=== PATIENT | female | born 1970 | race Two or more races ===

== ENCOUNTER 2018-12-23 12:31 | Emergency (ER) | payer OTHER ==
[~2018-12-23] VITALS: Ht 160 cm; Wt 83.9 kg
[2018-12-23 12:43] VITALS: BP 125/72
[2018-12-23] MEDS ORDERED: KETOROLAC 30 MG/ML VIAL. IM STA (12:45)
--- NOTE | 2018-12-23 12:48 | PHYS DOC ---
Adult General Chief Complaint Chief Complaint: MECHANICAL FALL HPI HPI Patient is a 48 year old female that was at work and slipped on some water around 11:15 AM and states that her left forearm and shoulder hip and pelvis area have hurt since that time. It's her pain as 10 out of 10 in severity and sharp. No medications prior to arrival. (KIEL HEART APRN) Review of Systems Review of Systems Constitutional: Denies fever or chills [] Eyes: Denies change in visual acuity, redness, or eye pain [] HENT: Denies nasal congestion or sore throat [] Respiratory: Denies cough or shortness of breath [] Cardiovascular: No additional information not addressed in HPI [] GI: Denies abdominal pain, nausea, vomiting, bloody stools or diarrhea [] : Denies dysuria or hematuria [] Musculoskeletal: Reports L hip and back pain. Reports L shoulder, and arm pain. Integument: Denies rash or skin lesions [] Neurologic: Denies headache, focal weakness or sensory changes [] Endocrine: Denies polyuria or polydipsia [] Complete systems were reviewed and found to be within normal limits, except as documented in this note. (KIEL HEART APRN) Current Medications Current Medications Current Medications Medications (Trade) Dose Ordered Sig/Vahid Start Time Stop Time Status Last Admin Dose Admin Ketorolac Tromethamine (Toradol 30mg Vial) 30 mg 1X STAT 12/23/18 12:45 12/23/18 13:15 DC 12/23/18 13:40 30 MG (MATY LUTHER MD) Allergies Allergies Allergies Coded Allergies Type Severity Reaction Last Updated Verified naproxen Allergy Unknown HIVES 12/23/18 Yes (MATY LUTHER MD) Physical Exam Physical Exam Constitutional: Well developed, well nourished, no acute distress, non-toxic appearance. [] HENT: Normocephalic, atraumatic, bilateral external ears normal, oropharynx moist, no oral exudates, nose normal. [] Eyes: PERRLA, EOMI, conjunctiva normal, no discharge. [] Neck: Normal range of motion, no tenderness, supple, no stridor. [] Cardiovascular:Heart rate regular rhythm, no murmur [] Lungs & Thorax: Bilateral breath sounds clear to auscultation [] Abdomen: Bowel sounds normal, soft, no tenderness, no masses, no pulsatile masses. [] Skin: Warm, dry, no erythema, no rash. [] Back: No tenderness, no CVA tenderness. [] Extremities: Tenderness to L shoulder, and L arm. Tenderness to L hip. Neurologic: Alert and oriented X 3, normal motor function, normal sensory function, no focal deficits noted. [] Psychologic: Affect normal, judgement normal, mood normal. [] (KIEL HEART APRN) Current Patient Data Vital Signs Vital Signs Date Time Temp Pulse Resp B/P (MAP) Pulse Ox O2 Delivery O2 Flow Rate FiO2 12/23/18 12:43 98.6 72 16 125/72 (89) 99 Room Air 98.6 (MATY LUTHER MD) EKG EKG [] (KIEL HEART APRN) Radiology/Procedures Radiology/Procedures [][facility] [address] [place] [address] IMAGING REPORT Signed PATIENT: SIM HALECOUNT: [id number] : 1970 LOCATION: ER AGE: 48 SEX: F EXAM STATUS: REG ER ORD. PHYSICIAN: KIEL HEART APRN REASON: fall PROCEDURE: HIP LEFT 1 VIEW WITH PELVIS Examination: Left hip with pelvis, 2 views of left shoulder, 2 views of left humerus, 2 views of left forearm HISTORY: History of fall COMPARISON: None available. Findings: The left femoral head is within the acetabulum. Mild degenerative changes pubic symphysis. The humerus head is within the glenoid. The visualized humerus, alignment of the radius, ulna grossly appears unremarkable IMPRESSION: No acute osseous findings. Electronically signed by: Farhan Laughlin MD (12/23/2018 1:39 PM) [facility] DICTATED and SIGNED BY: FARHAN LAUGHLIN MD DATE: 12/23/18 1336 (KIEL HEART APRN) Course & Med Decision Making Course & Med Decision Making Pertinent Labs and Imaging studies reviewed. (See chart for details) Will get imaging and give Toradol. Imaging is negative. Will d/c home. (KIEL HEART APRN) Course & Med Decision Making Staff Physician Addendum: I was working in the ER during the course of this patient's visit. I was available for consultation as needed, but I was not directly involved in the care of this patient. (MATY LUTHER MD) Dragon Disclaimer Dragon Disclaimer This electronic medical record was generated, in whole or in part, using a voice recognition dictation system. (KIEL HEART APRN) Departure Departure Impression: Primary Impression: Fall Disposition: 01 HOME, SELF-CARE Condition: STABLE Patient Instructions: Fall Prevention and Home Safety Additional Instructions: Thank you for visiting [facility]. We appreciate you trusting us with your care. If any additional problems come up don't hesitate to return to visit us. Please follow up with your primary care provider so they can plan additional care if needed and know about the problem that you had. If symptoms worsen come back to the Emergency Department. Any concerning symptoms that start such as chest pain, shortness of air, weakness or numbness on one side of the body, running high fevers or any other concerning symptoms return to the ER. Problem Qualifiers Primary Impression: Fall Encounter type: initial encounter Qualified Codes: W19.XXXA - Unspecified fall, initial encounter KIEL HEART APRN Dec 23, 2018 12:48 MATY LUTHER MD Dec 26, 2018 09:00
--- NOTE | 2018-12-23 13:42 | RAD ---
Examination: Left hip with pelvis, 2 views of left shoulder, 2 views of left humerus, 2 views of left forearm HISTORY: History of fall COMPARISON: None available. Findings: The left femoral head is within the acetabulum. Mild degenerative changes pubic symphysis. The humerus head is within the glenoid. The visualized humerus, alignment of the radius, ulna grossly appears unremarkable IMPRESSION: No acute osseous findings. Electronically signed by: Farhan Laughlin MD (12/23/2018 1:39 PM) [facility]
--- NOTE | 2018-12-23 13:42 | RAD ---
Examination: Left hip with pelvis, 2 views of left shoulder, 2 views of left humerus, 2 views of left forearm HISTORY: History of fall COMPARISON: None available. Findings: The left femoral head is within the acetabulum. Mild degenerative changes pubic symphysis. The humerus head is within the glenoid. The visualized humerus, alignment of the radius, ulna grossly appears unremarkable IMPRESSION: No acute osseous findings. Electronically signed by: Farhan Laughlin MD (12/23/2018 1:39 PM) [facility]
== END 2018-12-23 14:00 | disposition home or self-care (01) ==
LOC: ER 12:31
DX: M25.552 Pain in left hip (principal); M25.512 Pain in left shoulder; M79.602 Pain in left arm; Z88.8 Allergy status to other drugs, medicaments and biological substances; W01.0XXA Fall on same level from slipping, tripping and stumbling without subsequent striking against object, initial encounter; Y93.89 Activity, other specified; Y92.89 Other specified places as the place of occurrence of the external cause; Y99.0 Civilian activity done for income or pay
CPT/HCPCS: 73030; 73060; 73090; 73501; 96372; 99284; J1885

== ENCOUNTER 2019-01-03 20:35 | Emergency (ER) | payer BC, OTHER ==
[~2019-01-03] VITALS: Ht 160 cm; Wt 83.9 kg
[2019-01-03 20:40] VITALS: BP 169/71
--- NOTE | 2019-01-03 20:59 | PHYS DOC ---
Past Medical History Past Medical History: No Pertinent History (RUBEN ROBERTS APRN) Past Surgical History: Appendectomy, Cholecystectomy, , Other Additional Past Surgical Histo: RIGHT SHOULDER (RUBEN ROBERTS APRN) Alcohol Use: None Drug Use: None (RUBEN ROBERTS APRN) Attending Signature I have participated in the care of this patient and I have reviewed and agree with all pertinent clinical information above including history, exam, and recommendations. (NEERAJ CORDERO MD) Adult General Chief Complaint Chief Complaint: KNEE INJURY HPI HPI Patient is a 48 year old female with no significant medical history who presents to the ED to be evaluated today status post falling. Patient [facility] and [facility] a [facility] of [facility] and fell. Patient denies any loss of consciousness, denies hitting her head on the ground denies being on any blood thinners. She is complaining of 8 out of 10 right shoulder pain, right wrist pain, right knee pain, right calf pain and right ankle pain. She states the pain is worse on weight-bearing to the right lower extremity. Denies anything specifically relieving the pain. (RUBEN ROBERTS APRN) Review of Systems Review of Systems Constitutional: Denies fever or chills [] Eyes: Denies change in visual acuity, redness, or eye pain [] HENT: Denies nasal congestion or sore throat [] Respiratory: Denies cough or shortness of breath [] Cardiovascular: No additional information not addressed in HPI [] GI: Denies abdominal pain, nausea, vomiting, bloody stools or diarrhea [] : Denies dysuria or hematuria [] Musculoskeletal: Reports right shoulder pain, right hand pain, right knee pain, right calf pain, right ankle pain. Denies back pain Integument: Denies rash or skin lesions [] Neurologic: Denies headache, focal weakness or sensory changes [] Endocrine: Denies polyuria or polydipsia [] All other systems were reviewed and found to be within normal limits, except as documented in this note. (RUBEN ROBERTS APRN) Allergies Allergies Allergies Coded Allergies Type Severity Reaction Last Updated Verified naproxen Allergy Unknown HIVES 12/23/18 Yes (NEERAJ CORDERO MD) Physical Exam Physical Exam Constitutional: Well developed, well nourished, no acute distress, non-toxic kathie earance. [] HENT: Normocephalic, atraumatic, bilateral external ears normal, oropharynx moist, no oral exudates, nose normal. [] Eyes: PERRLA, EOMI, conjunctiva normal, no discharge. [] Neck: Normal range of motion, no tenderness, supple, no stridor. [] Cardiovascular:Heart rate regular rhythm, no murmur [] Lungs & Thorax: Bilateral breath sounds clear to auscultation [] Abdomen: Bowel sounds normal, soft, no tenderness, no masses, no pulsatile masses. [] Skin: Warm, dry, no erythema, no rash. [] Back: No tenderness, no CVA tenderness. [] Extremities: No tenderness, no cyanosis, no clubbing, ROM intact, no edema. [] Neurologic: Alert and oriented X 3, normal motor function, normal sensory function, no focal deficits noted. [] Psychologic: Affect normal, judgement normal, mood normal. [] (RUBEN ROBERTS APRN) Current Patient Data Vital Signs Vital Signs Date Time Temp Pulse Resp B/P (MAP) Pulse Ox O2 Delivery O2 Flow Rate FiO2 01/03/19 20:40 98.4 85 17 169/71 (103) 98 Room Air 98.4 (NEERAJ CORDERO MD) EKG EKG [] (RUBEN ROBERTS APRN) Radiology/Procedures Radiology/Procedures [] (RUBEN ROBERTS APRN) Course & Med Decision Making Course & Med Decision Making Pertinent Labs and Imaging studies reviewed. (See chart for details) This is a 48-year-old female patient who presents to the ED today complaining of pain status post falling at [facility]. She is complaining of right shoulder pain, right wrist pain, right knee pain, right flank pain, right ankle pain. Off note patient was seen in the ED 10 days ago status post falling at work and had multiple x-rays. Right wrist and right ankle x-rays interpreted by Dr. cordero and negative for any acute findings. Patient was discharged to home. Ice elevation encouraged. OTC pain relievers. Follow-up with orthopedic doctor/PCP in 1-2 weeks. (RUBEN ROBERTS APRN) Dragon Disclaimer Dragon Disclaimer This electronic medical record was generated, in whole or in part, using a voice recognition dictation system. (RUBEN ROBERTS APRN) Departure Departure Impression: Primary Impression: Fall Additional Impressions: Right ankle sprain Right wrist sprain Disposition: HOME, SELF-CARE Condition: STABLE Referrals: UNKNOWN PCP NAME (PCP) PUNEET RUBI MD follow up in one week Patient Instructions: Fall Prevention and Home Safety, Joint Sprain Additional Instructions: You were evaluated in the emergency room after falling. Your x-rays were negative for any acute findings. Please follow-up with your own doctor the provided doctor in 1-2 weeks. Try to ice and elevate the affected areas. Problem Qualifiers Primary Impression: Fall Encounter type: initial encounter Qualified Codes: W19.XXXA - Unspecified fall, initial encounter Additional Impressions: Right ankle sprain Encounter type: initial encounter Involved ligament of ankle: unspecified ligament Qualified Codes: S93.401A - Sprain of unspecified ligament of right ankle, initial encounter Right wrist sprain Encounter type: initial encounter Qualified Codes: S63.501A - Unspecified sprain of right wrist, initial encounter RUBEN ROBERTS APRN Jan 03, 2019 20:59 NEERAJ CORDERO MD Jan 04, 2019 00:39
--- NOTE | 2019-01-03 21:34 | RAD ---
Three-view right ankle dated 01/03/2019. No comparison available. Clinical data indication: Pain after fall. FINDINGS: 3 views right ankle show normal bony alignment. No displaced fracture. No acute osseous or articular abnormality. Talar dome is intact. Prominent calcaneal spur. IMPRESSION: No acute bony abnormality. Electronically signed by: Aaron Vizcarra MD (01/03/2019 9:30 PM) [facility]
--- NOTE | 2019-01-03 21:36 | RAD ---
3 views right wrist dated 01/03/2019. No comparison available. Clinical data indication: Pain after fall. FINDINGS: 3 views right wrist show normal bony alignment. No displaced fracture. No acute osseous or articular abnormality. Mild soft tissue swelling. IMPRESSION: Soft tissue swelling with no apparent underlying acute bony abnormality. Electronically signed by: Aaron Vizcarra MD (01/03/2019 9:33 PM) [facility]
== END 2019-01-03 21:30 | disposition home or self-care (01) ==
LOC: ER 20:35
DX: S93.491A Sprain of other ligament of right ankle, initial encounter (principal); S63.591A Other specified sprain of right wrist, initial encounter; M25.511 Pain in right shoulder; M79.661 Pain in right lower leg; M79.641 Pain in right hand; Z90.89 Acquired absence of other organs; Z90.49 Acquired absence of other specified parts of digestive tract; Z98.890 Other specified postprocedural states; Z88.8 Allergy status to other drugs, medicaments and biological substances; W18.31XA Fall on same level due to stepping on an object, initial encounter; Y93.89 Activity, other specified; Y92.512 Supermarket, store or market as the place of occurrence of the external cause; Y99.8 Other external cause status
CPT/HCPCS: 73110; 73610; 99284

== ENCOUNTER 2019-06-24 20:08 | Emergency (ER) | payer BC ==
[~2019-06-24] VITALS: Ht 172.7 cm; Wt 82.0 kg
--- NOTE | 2019-06-24 20:28 | PHYS DOC ---
Past Medical History Past Medical History: No Pertinent History Past Surgical History: Appendectomy, Cholecystectomy, , Other Additional Past Surgical Histo: RIGHT SHOULDER Smoking Status: Never Smoker Alcohol Use: None Drug Use: None Adult General Chief Complaint Chief Complaint: DIZZY/LIGHT HEADED [facility] HPI Patient is a 49 year old female who presents secondary to complaint of dizziness and sore throat that started approximately 40 minutes prior to arri daquan. The patient states that she feels a discomfort when she swallows and it is slightly more difficult than normal but she has no pain. No fever or chills reported. She states that she feels slightly lightheaded. No recent sickness. No medications taken prior to arrival. No new medications or food exposures tonight. Review of Systems Review of Systems All other ROS is negative unless otherwise stated in HPI Current Medications Current Medications Current Medications Medications (Trade) Dose Ordered Sig/Vahid Start Time Stop Time Status Last Admin Dose Admin Sodium Chloride 1,000 ml @ 1,000 mls/hr 1X ONCE 06/24/19 20:30 06/24/19 21:29 06/24/19 20:30 1,000 MLS/HR Allergies Allergies Allergies Coded Allergies Type Severity Reaction Last Updated Verified naproxen Allergy Unknown HIVES 12/23/18 Yes Physical Exam Physical Exam See above Constitutional: Well developed, well nourished, no acute distress, non-toxic appearance. [] HENT: Normocephalic, atraumatic, bilateral external ears normal, oropharynx moist, there is moderate posterior pharynx erythema with mild swelling and no exudates. Eyes: PERRLA, EOMI, conjunctiva normal, no discharge. [] Neck: Normal range of motion, no tenderness, supple, no stridor. [] Cardiovascular:Heart rate regular rhythm, no murmur [] Lungs & Thorax: Bilateral breath sounds clear to auscultation [] Abdomen: Bowel sounds normal, soft, no tenderness, no masses, no pulsatile masses. [] Skin: Warm, dry, no erythema, no rash. [] Back: No tenderness, no CVA tenderness. [] Extremities: No tenderness, no cyanosis, no clubbing, ROM intact, no edema. [] Neurologic: Alert and oriented X 3, normal motor function, normal sensory function, no focal deficits noted. [] Psychologic: Affect normal, judgement normal, mood normal. [] Current Patient Data Lab Values Laboratory Tests Test 06/24/19 20:32 06/24/19 20:37 Influenza Type A Antigen Negative (NEGATIVE) Influenza Type B Antigen Negative (NEGATIVE) White Blood Count 10.1 x10^3/uL (4.0-11.0) Red Blood Count 3.88 x10^6/uL (3.50-5.40) Hemoglobin 12.5 g/dL (12.0-15.5) Hematocrit 36.5 % (36.0-47.0) Mean Corpuscular Volume 94 fL (79-100) Mean Corpuscular Hemoglobin 32 pg (25-35) Mean Corpuscular Hemoglobin Concent 34 g/dL (31-37) Red Cell Distribution Width 13.9 % (11.5-14.5) Platelet Count 346 x10^3/uL (140-400) Neutrophils (%) (Auto) 76 % (31-73) H Lymphocytes (%) (Auto) 17 % (24-48) L Monocytes (%) (Auto) 6 % (0-9) Eosinophils (%) (Auto) 1 % (0-3) Basophils (%) (Auto) 1 % (0-3) Neutrophils # (Auto) 7.6 x10^3/uL (1.8-7.7) Lymphocytes # (Auto) 1.7 x10^3/uL (1.0-4.8) Monocytes # (Auto) 0.6 x10^3/uL (0.0-1.1) Eosinophils # (Auto) 0.0 x10^3/uL (0.0-0.7) Basophils # (Auto) 0.1 x10^3/uL (0.0-0.2) Sodium Level 137 mmol/L (136-145) Potassium Level 3.9 mmol/L (3.5-5.1) Chloride Level 103 mmol/L (98-107) Carbon Dioxide Level 26 mmol/L (21-32) Anion Gap 8 (6-14) Blood Urea Nitrogen 15 mg/dL (7-20) Creatinine 0.9 mg/dL (0.6-1.0) Estimated GFR (Cockcroft-Gault) 66.3 Glucose Level 161 mg/dL (70-99) H Calcium Level 8.5 mg/dL (8.5-10.1) Troponin I Quantitative < 0.017 ng/mL (0.000-0.055) Laboratory Tests 06/24/19 20:37 Laboratory Tests 06/24/19 20:37 EKG EKG Patient's EKG shows a normal sinus rhythm with a heart rate of [address] changes. Radiology/Procedures Radiology/Procedures [] Course & Med Decision Making Course & Med Decision Making Pertinent Labs and Imaging studies reviewed. (See chart for details) 2026: This patient seen for dizziness and sore throat. Examination is concerning for possible pharyngitis. Differential diagnosis considered cooperatives, viral pharyngitis, generalized malaise, viral syndrome. Given IV fluids, check labs. EKG is unremarkable. We'll also check for strep. 2120: Patient's labs are unremarkable. We'll start her on prednisone to help with viral pharyngitis. Dragon Disclaimer Dragon Disclaimer This electronic medical record was generated, in whole or in part, using a voice recognition dictation system. Departure Departure Impression: Primary Impression: Viral pharyngitis Additional Impression: Dizziness Disposition: 01 HOME, SELF-CARE Condition: IMPROVED Referrals: UNKNOWN PCP NAME (PCP) Patient Instructions: Viral Pharyngitis Scripts Prednisone (PREDNISONE) 20 Mg Tablet 2 TAB PO DAILY, #10 TAB Prov: MARGIE SHIN DO 06/24/19 Problem Qualifiers MARGIE SHIN DO Jun 24, 2019 20:27
[2019-06-24] MEDS ORDERED: IV NORMAL SALINE 1000ML BAG 1,000 ML IV ONE (20:30)
[2019-06-24 20:47] LABS: BASO # 0.1 x10^3/uL (0.0-0.2); BASO % 1 % (0-3); EOS % 1 % (0-3); HEMATOCRIT 36.5 % (36.0-47.0); HEMOGLOBIN 12.5 g/dL (12.0-15.5); LYMPH # 1.7 x10^3/uL (1.0-4.8); LYMPH % 17 % (24-48); MEAN CORPUSCULAR HEMOGLOBIN 32 pg (25-35); MEAN CORPUSCULAR HGB CONC 34 g/dL (31-37); MEAN CORPUSCULAR VOLUME 94 fL (79-100); MONO # 0.6 x10^3/uL (0.0-1.1); MONO % 6 % (0-9); NEUT # 7.6 x10^3/uL (1.8-7.7); NEUT % 76 % (31-73); PLATELET COUNT 346 x10^3/uL (140-400); RED BLOOD COUNT 3.88 x10^6/uL (3.50-5.40); RED CELL DISTRIBUTION WIDTH 13.9 % (11.5-14.5); WHITE BLOOD COUNT 10.1 x10^3/uL (4.0-11.0)
[2019-06-24 20:58] LABS: CALCIUM 8.5 mg/dL (8.5-10.1); CREATININE 0.9 mg/dL (0.6-1.0); GFR 66.3; POTASSIUM 3.9 mmol/L (3.5-5.1)
[2019-06-24 21:14] LABS: INFLUENZA A PATIENT NEGATIVE (NEGATIVE); INFLUENZA B PATIENT NEGATIVE (NEGATIVE)
[2019-06-24] MEDS ORDERED: PRED20TA PO (21:22)
[2019-06-24] MEDS ORDERED: predniSONE 20 MG TABLET PO ONE (21:30)
[2019-06-24] MEDS ORDERED: methylPREDNISolone SOD SUCC PF 125 MG/2 ML VIAL. IV ONE (21:30)
[2019-06-24 21:52] VITALS: BP 114/62
--- NOTE | 2019-06-25 02:59 | EKG ---
[facility] [address] [place] [address] Test Date: 2019-06-24 Test Time: 20:19:27 Pat Name: DAYAAN HALE Department: Room: Gender: F [employer] Services Manager: : 1970 Requested By: MARGIE SHIN Order Number: [id number] Reading MD: Measurements Intervals [place] Rate: 84 P: 126 NM: 120 QRS: -14 QRSD: 76 T: -4 QT: 434 QTc: 516 Interpretive Statements SINUS RHYTHM LEFT ATRIAL ABNORMALITY LEFTWARD AXIS T ABNORMALITY IN ANTERIOR LEADS PROLONGED QT NON SPECIFIC ST DEPRESSION ABNORMAL ECG No previous ECG available for comparison
== END 2019-06-24 22:03 | disposition home or self-care (01) ==
LOC: ER 20:08
DX: J02.8 Acute pharyngitis due to other specified organisms (principal); R42 Dizziness and giddiness; Z90.89 Acquired absence of other organs; Z90.49 Acquired absence of other specified parts of digestive tract; Z88.6 Allergy status to analgesic agent
CPT/HCPCS: 36415; 80048; 84484; 85025; 87804; 93005; 96361; 96374; 99284; J2930; J7030; 87070; 87880

== ENCOUNTER 2020-06-23 19:52 | Emergency (ER) | payer BC ==
[~2020-06-23] VITALS: Ht 167.6 cm; Wt 82.0 kg
[~2020-06-23 19:52] MED LIST: PRED20TA PO
--- NOTE | 2020-06-23 21:26 | PHYS DOC ---
Past Medical History Past Medical History: No Pertinent History Past Surgical History: Appendectomy, Cholecystectomy, , Other Additional Past Surgical Histo: RIGHT SHOULDER Smoking Status: Never Smoker Alcohol Use: None Drug Use: None General Adult EDM: Chief Complaint: LOWER EXT PAIN HPI: HPI: 50-year-old female who presents for evaluation of 2 days of atraumatic proximal left lower extremity, left groin and pelvic pain. No nausea, vomiting, or diarrhea. No back or flank pain. She states that the location of her pain is somewhat vague, extending from the proximal left lower extremity to the left lower quadrant region. Pain is worse with ambulation and direct palpation. Review of Systems: Review of Systems: Gen: No fever, chills. Eyes: No blurred vision, diplopia. ENT: No nasal congestion, sore throat. CV: No CP, palpitations. Resp. No SOB, cough. GI: No N/V. Reports left-sided pelvic and groin pain. : No dysuria, hematuria. Neuro: No ZHANG, dizziness, weakness. MSK: No back pain. Reports arthralgia. Skin: No acute rash or lesion. Remainder of systems reviewed and negative unless otherwise specified. Heart Score: Risk Factors: Risk Factors: DM, Current or recent (<one month) smoker, HTN, HLP, family histo ry of CAD, obesity. Risk Scores: Score 0 - 3: 2.5% MACE over next 6 weeks - Discharge Home Score 4 - 6: 20.3% MACE over next 6 weeks - Admit for Clinical Observation Score 7 - 10: 72.7% MACE over next 6 weeks - Early Invasive Strategies Allergies: Allergies: Allergies Coded Allergies Type Severity Reaction Last Updated Verified naproxen Allergy Unknown HIVES 12/23/18 Yes Physical Exam: PE: Gen: NAD. Well nourished. Head: NC/AT. Eyes: No scleral icterus. No conjunctival injection. ENT: MMM. Posterior OP clear. Neck: Supple. CV: RRR. No M/R/G. Peripheral pulses intact. Resp: CTAB. Abd: Soft. Nondistended. Nonfocal left pelvic tenderness. No overlying skin changes. No flank percussion tenderness. Back: No midline spinal tenderness or step-off. MSK: No peripheral cyanosis. No edema. Questionably positive left lower extremity straight leg raise. Neuro: A&Ox3. Strength & sensation grossly intact throughout. Skin. Warm. Dry. Psych: Appropriate mood & affect. Current Patient Data: Labs: Laboratory Tests Test 06/23/20 21:43 06/23/20 21:48 Urine Collection Type Unknown Urine Color Yellow Urine Clarity Clear Urine pH 5.5 (<5.0-8.0) Urine Specific [place] >=1.030 (1.000-1.030) Urine Protein Negative mg/dL (NEG-TRACE) Urine Glucose (UA) Negative mg/dL (NEG) Urine Ketones (Stick) Negative mg/dL (NEG) Urine Blood Moderate (NEG) Urine Nitrite Negative (NEG) Urine Bilirubin Negative (NEG) Urine Urobilinogen Dipstick 0.2 mg/dL (0.2 mg/dL) Urine Leukocyte Esterase Negative (NEG) Urine RBC 1-2 /HPF (0-2) Urine WBC 1-4 /HPF (0-4) Urine Squamous Epithelial Cells Many /LPF Urine Bacteria Few /HPF (0-FEW) Urine Mucus Marked /LPF White Blood Count 7.8 x10^3/uL (4.0-11.0) Red Blood Count 3.87 x10^6/uL (3.50-5.40) Hemoglobin 12.4 g/dL (12.0-15.5) Hematocrit 36.8 % (36.0-47.0) Mean Corpuscular Volume 95 fL (79-100) Mean Corpuscular Hemoglobin 32 pg (25-35) Mean Corpuscular Hemoglobin Concent 34 g/dL (31-37) Red Cell Distribution Width 14.6 % (11.5-14.5) Platelet Count 282 x10^3/uL (140-400) Neutrophils (%) (Auto) 59 % (31-73) Lymphocytes (%) (Auto) 30 % (24-48) Monocytes (%) (Auto) 8 % (0-9) Eosinophils (%) (Auto) 3 % (0-3) Basophils (%) (Auto) 1 % (0-3) Neutrophils # (Auto) 4.6 x10^3/uL (1.8-7.7) Lymphocytes # (Auto) 2.3 x10^3/uL (1.0-4.8) Monocytes # (Auto) 0.6 x10^3/uL (0.0-1.1) Eosinophils # (Auto) 0.2 x10^3/uL (0.0-0.7) Basophils # (Auto) 0.1 x10^3/uL (0.0-0.2) Sodium Level 140 mmol/L (136-145) Chloride Level 105 mmol/L (98-107) Carbon Dioxide Level 29 mmol/L (21-32) Anion Gap 6 (6-14) Blood Urea Nitrogen 20 mg/dL (7-20) Estimated GFR (Cockcroft-Gault) 66.0 BUN/Creatinine Ratio 22 (6-20) Glucose Level 88 mg/dL (70-99) Calcium Level 8.7 mg/dL (8.5-10.1) Total Bilirubin 0.2 mg/dL (0.2-1.0) Aspartate Amino Transf (AST/SGOT) 19 U/L (15-37) Alkaline Phosphatase 69 U/L (46-116) Total Protein 7.1 g/dL (6.4-8.2) Albumin 3.4 g/dL (3.4-5.0) Albumin/Globulin Ratio 0.9 (1.0-1.7) EKG: EKG: [] Radiology/Procedures: Radiology/Procedures: PROCEDURE: CT ABD PELV W/ IV CONTRST ONLY Exam: CT of abdomen and pelvis with contrast. CT lumbar spine INDICATION: Left-sided pelvic pain TECHNIQUE: Sequential axial images through the abdomen and pelvis obtained following the administration of 75 mL of Omni 300 IV contrast. Sagittal and coronal reformatted images were reconstructed from the axial data and reviewed. Cone-down reconstructed images of the lumbar spine were also reviewed. Comparisons: None FINDINGS: Heart size is normal. No pericardial effusion. Strandy opacities at dependent portion lungs likely representing atelectasis. No pleural effusion. Liver, spleen, pancreas, and adrenals are unremarkable. Gallbladder surgically absent. No perinephric inflammation or hydronephrosis. No renal or ureteral calculi are identified. Bladder is decompressed not well evaluated. Uterus is nonenlarged. There is a 3 cm cyst at the left adnexa. Large and small bowel are unremarkable. Appendix is is not identified. No free intra-abdominal air or fluid. No obstruction. Abdominal aorta has a normal course and caliber. Abdominal vasculature is patent. No enlarged intra-abdominal lymph nodes are identified. No suspicious osseous lesions or acute fractures. Lumbar spine: Vertebral body heights and alignment are well-maintained. Fracture to the lumbar spine is not identified. No significant spondylotic change lumbar spine. IMPRESSION: 1. Cystic lesion at the left adnexa which measures 3.0 cm, favored represent cyst within the left ovary. This is incompletely evaluated on CT. 2. Negative CT lumbar spine for acute traumatic injury. Exposure: One or more of the following in the visualized dose reduction te chniques were utilized for this examination: 1. Automated exposure control 2. Adjustment of the MA and/or KV according to patient size 3. Use of iterative of reconstructive technique Electronically signed by: Amanda Ornelas MD (06/23/2020 10:55 PM) [facility] Course & Med Decision Making: Course & Med Decision Making Pertinent Labs and Imaging studies reviewed. (See chart for details) 50-year-old female who presents for evaluation of 2 days of left pelvic pain that radiates to the inguinal fold and proximal thigh. HDS. Nonfocal LLQ TTP without R/G/R. No midline spinal or flank TTP. Labs unrevealing. CTAP with likely left ovarian cyst. Pain controlled with toradol (declined morphine). Do not suspect acute torsion. Will DC home with outpatient [facility] F/U. Rx tramdol. Return precautions given. Aron Disclaimer: Aron Disclaimer: This electronic medical record was generated, in whole or in part, using a voice recognition dictation system. Departure Departure Impression: Primary Impression: Left ovarian cyst Disposition: 01 DC HOME SELF CARE/HOMELESS Condition: STABLE Referrals: FRANSISCO GUERRERO MD Patient Instructions: Ovarian Cyst, Acam-hs-Hrgi Additional Instructions: Your CT showed a likely left ovarian cyst measuring 3 cm. Follow up with the casing in line setter. Return to the ED if you develop new or worsening symptoms. Scripts Tramadol Hcl (TRAMADOL HCL) 50 Mg Tablet 50 MG PO Q8HRS PRN for PAIN, #15 TAB Prov: CARMEL SCOTT DO 06/23/20 CARMEL SCOTT DO Jun 23, 2020 21:26
[2020-06-23] MEDS ORDERED: MORPHINE SULFATE 4 MG/ML VIAL. IV ONE (21:30)
[2020-06-23 22:07] LABS: BASO # 0.1 x10^3/uL (0.0-0.2); BASO % 1 % (0-3); EOS # 0.2 x10^3/uL (0.0-0.7); EOS % 3 % (0-3); HEMATOCRIT 36.8 % (36.0-47.0); HEMOGLOBIN 12.4 g/dL (12.0-15.5); LYMPH # 2.3 x10^3/uL (1.0-4.8); LYMPH % 30 % (24-48); MEAN CORPUSCULAR HEMOGLOBIN 32 pg (25-35); MEAN CORPUSCULAR HGB CONC 34 g/dL (31-37); MEAN CORPUSCULAR VOLUME 95 fL (79-100); MONO # 0.6 x10^3/uL (0.0-1.1); MONO % 8 % (0-9); NEUT # 4.6 x10^3/uL (1.8-7.7); NEUT % 59 % (31-73); PLATELET COUNT 282 x10^3/uL (140-400); RED BLOOD COUNT 3.87 x10^6/uL (3.50-5.40); RED CELL DISTRIBUTION WIDTH 14.6 % (11.5-14.5); WHITE BLOOD COUNT 7.8 x10^3/uL (4.0-11.0)
[2020-06-23 22:09] LABS: BILIRUBIN,URINE NEGATIVE (NEG); CLARITY,URINE CLEAR; COLOR,URINE YELLOW; NITRITE,URINE NEGATIVE (NEG); PH,URINE 5.5 (<5.0-8.0); PROTEIN,URINE NEGATIVE (NEG-TRACE); UROBILINOGEN,URINE 0.2 mg/dL (0.2 mg/dL)
[2020-06-23 22:16] LABS: CALCIUM 8.7 mg/dL (8.5-10.1); CREATININE 0.9 mg/dL (0.6-1.0); POTASSIUM 3.8 mmol/L (3.5-5.1)
[2020-06-23 22:17] LABS: BACTERIA,URINE FEW /HPF (0-FEW)
[2020-06-23 22:22] LABS: ALBUMIN 3.4 g/dL (3.4-5.0); ALBUMIN/GLOBULIN RATIO 0.9 (1.0-1.7); MAGNESIUM 2.1 mg/dL (1.8-2.4); TOTAL BILIRUBIN 0.2 mg/dL (0.2-1.0); TOTAL PROTEIN 7.1 g/dL (6.4-8.2)
[2020-06-23] MEDS ORDERED: IOHEXOL 300 MG/ML 100ML VIAL. IV ONE (22:30)
[2020-06-23] MEDS ORDERED: KETOROLAC 15 MG/ML VIAL. IVP ONE (22:30)
[2020-06-23] MEDS ORDERED: CONTRAST GIVEN. MC PRN (22:30)
--- NOTE | 2020-06-23 22:57 | RAD ---
Exam: CT of abdomen and pelvis with contrast. CT lumbar spine INDICATION: Left-sided pelvic pain TECHNIQUE: Sequential axial images through the abdomen and pelvis obtained following the administrati on of 75 mL of Omni 300 IV contrast. Sagittal and coronal reformatted images were reconstructed from the axial data and reviewed. Cone-down reconstructed images of the lumbar spine were also reviewed. Comparisons: None FINDINGS: Heart size is normal. No pericardial effusion. Strandy opacities at dependent portion lungs likely re presenting atelectasis. No pleural effusion. Liver, spleen, pancreas, and adrenals are unremarkable. Gallbladder surgically absent. No perinephric inflammation or hydronephrosis. No renal or ureteral calculi are identified. Bladder is decompressed not well evaluated. Uterus is nonenlarged. There is a 3 cm cyst at the left a dnexa. Large and small bowel are unremarkable. Appendix is is not identified. No free intra-abdominal air or fluid. No obstruction. Abdominal aorta has a normal course and caliber. Abdominal vasculature is patent. No enlarged intra-abdominal lymph nodes are identified. No suspicious osseous lesions or acute fractures. Lumbar spine: Vertebral body heights and alignment are well-maintained. Fracture to the lumbar spine is not identified. No significant spondylotic change lumbar spine. IMPRESSION: 1. Cystic lesion at the left adnexa which measures 3.0 cm, favored represent cyst within the left ov ana m. This is incompletely evaluated on CT. 2. Negative CT lumbar spine for acute traumatic injury. Exposure: One or more of the following in the visualized dose reduction techniques were utilized for this examination: 1. Automated exposure control 2. Adjustment of the MA and/or KV according to patient size 3. Use of iterative of reconstructive technique Electronically signed by: Amanda Ornelas MD (06/23/2020 10:55 PM) [facility]
[2020-06-23] MEDS ORDERED: TRAM50TA PO (23:06)
[2020-06-23 23:23] VITALS: BP 122/55
== END 2020-06-23 23:30 | disposition home or self-care (01) ==
LOC: ER 19:52
DX: N83.202 Unspecified ovarian cyst, left side (principal); Z90.89 Acquired absence of other organs; Z90.49 Acquired absence of other specified parts of digestive tract; Z88.5 Allergy status to narcotic agent
CPT/HCPCS: 36415; 74177; 80053; 81001; 83735; 85025; 96374; 99285; J1885; Q9967

== ENCOUNTER 2021-05-14 10:11 | Emergency (ER) | payer BC ==
[~2021-05-14] VITALS: Ht 167.6 cm; Wt 79.8 kg
[~2021-05-14 10:11] MED LIST changes: +TRAM50TA PO
[2021-05-14] MEDS ORDERED: ONDANSETRON PF 4 MG/2 ML VIAL. IVP ONE (10:30)
[2021-05-14] MEDS ORDERED: KETOROLAC 30 MG/ML VIAL. IVP ONE (10:30)
[2021-05-14] MEDS ORDERED: IV NORMAL SALINE 1000ML BAG 1,000 ML IV ONE (10:30)
[2021-05-14 11:06] LABS: BASO % 1 % (0-3); EOS # 0.2 x10^3/uL (0.0-0.7); EOS % 3 % (0-3); HEMATOCRIT 40.8 % (36.0-47.0); HEMOGLOBIN 13.7 g/dL (12.0-15.5); LYMPH # 1.2 x10^3/uL (1.0-4.8); LYMPH % 18 % (24-48); MEAN CORPUSCULAR HEMOGLOBIN 31 pg (25-35); MEAN CORPUSCULAR HGB CONC 34 g/dL (31-37); MEAN CORPUSCULAR VOLUME 92 fL (79-100); MONO # 0.3 x10^3/uL (0.0-1.1); MONO % 5 % (0-9); NEUT % 75 % (31-73); PLATELET COUNT 306 x10^3/uL (140-400); RED BLOOD COUNT 4.44 x10^6/uL (3.50-5.40); RED CELL DISTRIBUTION WIDTH 14.3 % (11.5-14.5); WHITE BLOOD COUNT 6.8 x10^3/uL (4.0-11.0)
[2021-05-14] MEDS ORDERED: IOHEXOL 300 MG/ML 100ML VIAL. IV ONE (11:15)
--- NOTE | 2021-05-14 11:16 | RAD ---
XR CHEST 1V INDICATION: Dizziness . COMPARISON STUDY: None. FINDINGS: Lungs: Normal lung volume. No pulmonary mass or consolidation. The tracheobronchial tree and hilar st ructures are normal. Pleura: No pleural effusion or pneumothorax. Heart and Mediastinum: The cardiomediastinal silhouette is normal. The great vessels of the thorax ar e normal. Bones and Soft Tissues: The bones and soft tissues are within normal limits. IMPRESSION: No acute cardiopulmonary process. Electronically signed by: Dale Case MD (05/14/2021 11:13 AM) [id number]
[2021-05-14 11:25] LABS: CALCIUM 9.2 mg/dL (8.5-10.1); CREATININE 0.8 mg/dL (0.6-1.0); GFR 75.3; POTASSIUM 4.8 mmol/L (3.5-5.1)
[2021-05-14 11:30] LABS: ALBUMIN 3.7 g/dL (3.4-5.0); ALBUMIN/GLOBULIN RATIO 0.9 (1.0-1.7); TOTAL BILIRUBIN 0.5 mg/dL (0.2-1.0); TOTAL PROTEIN 7.8 g/dL (6.4-8.2)
[2021-05-14] MEDS ORDERED: CONTRAST GIVEN. MC PRN (11:30)
[2021-05-14 11:33] LABS: INFLUENZA A PATIENT NEGATIVE (NEGATIVE); INFLUENZA B PATIENT NEGATIVE (NEGATIVE)
--- NOTE | 2021-05-14 12:11 | RAD ---
EXAM: CTA HEAD AND NECK W/WO CONTRAST, CT HEAD/BRAIN WO DATE: 05/14/2021 11:42 AM INDICATION: Dizziness, light headedness TECHNIQUE: 5 mm axial tomographic images were obtained through the head before contrast. CTA angiogra m of the head and neck was obtained after IV bolus administration of 75 cc of Omnipaque 300. The imag es were sent to workstation and multiplanar reconstructions were obtained. Multiplanar reconstructio n images to include MIP and 3-D reconstruction images are submitted. One or more of the following dose reduction techniques were utilized: Automated exposure control (AEC ), Adjustment of mA and/or kV according to patient size, Use of iterative reconstruction technique carbajal ch as ASiR, CT scan done according to ALARA and image gently/image wisely COMPARISON: None. FINDINGS: Noncontrast CT: The brain parenchyma is normal in attenuation. No intra- or extra-axial mass or fluid collection. No hyperdense intracranial hemorrhage. The ventricles are normal in size and configuration without midli ne shift. There is normal govea-white matter differentiation. The subarachnoid cisterns are patent. The visualized paranasal sinuses are well aerated. The mastoid air cells are clear. The visualized po rtions of the orbits are normal. No aggressive osseous lesion or fracture. CTA Head: The visualized distal internal carotid arteries, anterior and middle cerebral arteries are patent and normal caliber. The distal vertebral arteries, basilar artery, and posterior cerebral arteries are p atent and normal caliber. No aneurysm or arteriovenous malformation is seen. CTA Neck: Right carotid: The right common carotid artery is patent and normal caliber. The carotid bifurcation is normal. No stenosis of the right internal carotid artery per NASCET criteria. The right external c arotid artery is patent. Left carotid: The left common carotid artery is patent and normal caliber. The carotid bifurcation is normal. No stenosis of the left internal carotid artery per NASCET criteria. The left external carot id artery is patent. Right vertebral: The right vertebral artery is patent and normal caliber. Left vertebral: The left vertebral artery is patent and normal caliber. The visualized portions of the aortic arch are normal. The origins of the brachiocephalic and subclav nilson arteries are normal. Scattered conspicuous cervical lymph nodes. Enlarged palatine tonsils. The thyroid gland is normal. T he parotid and submandibular glands are normal. The visualized aerodigestive tract is unremarkable. Mild multilevel degenerative disc height loss. Multilevel disc protrusions and marginal osteophytes r esults in multilevel spinal canal stenosis. Multilevel uncovertebral and facet arthrosis with multile boris neural foraminal narrowing. The visualized portions of the lungs are clear. IMPRESSION: 1. No acute intracranial process by noncontrast head CT. 2. No intracranial large vessel occlusion. 3. No stenosis of the cervical carotid or vertebral arteries. 4. Enlarged palatine tonsils and scattered conspicuous cervical lymph nodes, likely reactive. PQRS Compliance Statement - Stenosis calculations for CT, MR and conventional angiography are based u andrea measurement of the distal ICA diameter in accordance with the NASCET methodology. Electronically signed by: Dale Case MD (05/14/2021 12:08 PM) [id number]
[2021-05-14 12:14] LABS: BILIRUBIN,URINE NEGATIVE (NEG); CLARITY,URINE CLEAR; COLOR,URINE YELLOW; NITRITE,URINE NEGATIVE (NEG); PROTEIN,URINE NEGATIVE (NEG-TRACE); UROBILINOGEN,URINE 0.2 mg/dL (0.2 mg/dL)
[2021-05-14 12:33] LABS: BACTERIA,URINE 0 /HPF (0-FEW); RBC,URINE 0 /HPF (0-2); WBC,URINE OCC /HPF (0-4)
--- NOTE | 2021-05-14 12:51 | PHYS DOC ---
Past Medical History Past Medical History: No Pertinent History Past Surgical History: Appendectomy, Cholecystectomy, , Other Additional Past Surgical Histo: RIGHT SHOULDER Smoking Status: Never Smoker Alcohol Use: None Drug Use: None General Adult EDM: Chief Complaint: DIZZY/LIGHT HEADED HPI: HPI: Patient is a 51-year-old female presents to the emergency department reporting dizziness and lightheadedness since she woke up this morning. Patient also complains of feeling general malaise and fatigue, reports nausea without vomiting or diarrhea. Denies abdominal pain or constipation. Patient denies increased urinary frequency, hematuria, or other dysuria. Patient denies vaginal discharge or STI concerns. Patient describes her dizziness as if she feels wobbly and off, denies room spinning sensation. Patient denies visual disturbances, does report intermittent headaches that she describes as mild that come and go, denies headache at this time, reports her headache sensations last seconds to just under a minute in duration, do not seem to have a rhythm to her headache onset or duration, denies this being the worst headaches of her life, denies thunderclap onset. Patient denies nasal congestion, ear pain, chest pain, chest palpitations, syncopal or near syncopal episodes. Patient denies other physical complaints or physical concerns. Review of Systems: Review of Systems: 14 body systems of review of systems have been reviewed. See HPI for pertinent positives and negative responses, otherwise all other systems are negative, nonpertinent or noncontributory. Constitutional: Negative except as outlined in HPI above. Skin: Negative except as outlined in HPI above. Eyes: Negative except as outlined in HPI above. HENT: Negative except as outlined in HPI above. Respiratory: Negative except as outlined in HPI above. Cardiovascular: Negative except as outlined in HPI above. GI: Negative except as outlined in HPI above. : Negative except as outlined in HPI above. Musculoskeletal: Negative except as outlined in HPI above. Integument: Negative except as outlined in HPI above. Neurologic: Negative except as outlined in HPI above. Endocrine: Negative except as outlined in HPI above. Lymphatic: Negative except as outlined in HPI above. Psychiatric: Negative except as outlined in HPI above. Heart Score: C/O Chest Pain: No Risk Factors: Risk Factors: DM, Current or recent (<one month) smoker, HTN, HLP, family history of CAD, obesity. Risk Scores: Score 0 - 3: 2.5% MACE over next 6 weeks - Discharge Home Score 4 - 6: 20.3% MACE over next 6 weeks - Admit for Clinical Observation Score 7 - 10: 72.7% MACE over next 6 weeks - Early Invasive Strategies Current Medications: Current Medications Medications (Trade) Dose Ordered Sig/Vahid Start Time Stop Time Status Last Admin Dose Admin Info (CONTRAST GIVEN -- Rx MONITORING) 1 each PRN DAILY PRN 05/14/21 11:30 05/16/21 11:29 Iohexol (Omnipaque 300 Mg/ml) 75 ml 1X ONCE 05/14/21 11:15 05/14/21 11:21 DC 05/14/21 11:15 75 ML Ketorolac Tromethamine (Toradol 30mg Vial) 30 mg 1X ONCE 05/14/21 10:30 05/14/21 10:39 DC 05/14/21 11:02 30 MG Ondansetron HCl (Zofran) 4 mg 1X ONCE 05/14/21 10:30 05/14/21 10:39 DC 05/14/21 11:01 4 MG Sodium Chloride 1,000 ml @ 1,000 mls/hr 1X ONCE 05/14/21 10:30 05/14/21 11:29 DC 05/14/21 10:56 1,000 MLS/HR Allergies: Allergies: Allergies Coded Allergies Type Severity Reaction Last Updated Verified naproxen Allergy Unknown HIVES 12/23/18 Yes Physical Exam: PE: Constitutional: Well developed, well nourished, no acute distress, non-toxic appearance. 51-year-old female in no apparent distress. HENT: Normocephalic, atraumatic. Bilateral TMs intact within normal limits, no lymphadenopathy of the head and neck appreciated, oropharynx moist, pink, no deep tissue infectious process appreciated. Eyes: Conjunctiva normal, no discharge. Satisfactory 6 cardinal eye movements, no nystagmus appreciated. Neck: Normal range of motion, no stridor. No meningismus signs, no nuchal rigidity. Cardiovascular: No cyanosis appreciated, distal cap refill less than 2 seconds. Lungs & Thorax: Patient is in no respiratory distress, no audible adventitious lung sounds appreciated. Abdomen: Nontender, no abnormalities noted. Skin: Warm, dry, no erythema, no rash. Back: No tenderness, no deformities. Extremities: No tenderness, no cyanosis, no clubbing, ROM intact, no edema. Neurologic: Alert and oriented X 3, normal motor function, normal sensory function, no focal deficits noted. Negative [place]-Hallpike maneuver, normal gait, no ataxia appreciated, cerebellar exam intact. Psychologic: Affect normal, judgement normal, mood normal. Current Patient Data: Labs: Laboratory Tests Test 05/14/21 10:40 05/14/21 10:50 05/14/21 12:00 White Blood Count 6.8 x10^3/uL Red Blood Count 4.44 x10^6/uL Hemoglobin 13.7 g/dL Hematocrit 40.8 % Mean Corpuscular Volume 92 fL Mean Corpuscular Hemoglobin 31 pg Mean Corpuscular Hemoglobin Concent 34 g/dL Red Cell Distribution Width 14.3 % Platelet Count 306 x10^3/uL Neutrophils (%) (Auto) 75 % Lymphocytes (%) (Auto) 18 % Monocytes (%) (Auto) 5 % Eosinophils (%) (Auto) 3 % Basophils (%) (Auto) 1 % Neutrophils # (Auto) 5.0 x10^3/uL Lymphocytes # (Auto) 1.2 x10^3/uL Monocytes # (Auto) 0.3 x10^3/uL Eosinophils # (Auto) 0.2 x10^3/uL Basophils # (Auto) 0.0 x10^3/uL Sodium Level 143 mmol/L Potassium Level 4.8 mmol/L Chloride Level 104 mmol/L Carbon Dioxide Level 29 mmol/L Anion Gap 10 Blood Urea Nitrogen 13 mg/dL Creatinine 0.8 mg/dL Estimated GFR (Cockcroft-Gault) 75.3 BUN/Creatinine Ratio 16 Glucose Level 121 mg/dL Calcium Level 9.2 mg/dL Total Bilirubin 0.5 mg/dL Aspartate Amino Transf (AST/SGOT) 18 U/L Alanine Aminotransferase (ALT/SGPT) 35 U/L Alkaline Phosphatase 100 U/L Troponin I High Sensitivity 5 ng/L RN-Vzi-B-Type Natriuretic Peptide 23 pg/mL Total Protein 7.8 g/dL Albumin 3.7 g/dL Albumin/Globulin Ratio 0.9 Influenza Type A Antigen Negative Influenza Type B Antigen Negative SARS-CoV-2 Antigen (Rapid) Negative Urine Collection Type Void Urine Color Yellow Urine Clarity Clear Urine pH 7.0 Urine Specific [place] 1.010 Urine Protein Negative mg/dL Urine Glucose (UA) Negative mg/dL Urine Ketones (Stick) Negative mg/dL Urine Blood Negative Urine Nitrite Negative Urine Bilirubin Negative Urine Urobilinogen Dipstick 0.2 mg/dL Urine Leukocyte Esterase Trace Urine RBC 0 /HPF Urine WBC Occ /HPF Urine Squamous Epithelial Cells Few /LPF Urine Bacteria 0 /HPF Urine Mucus Slight /LPF Current Medications Medications (Trade) Dose Ordered Sig/Vahid Route PRN Reason Start Time Stop Time Status Last Admin Dose Admin Sodium Chloride 1,000 ml @ 1,000 mls/hr 1X ONCE IV 05/14/21 10:30 05/14/21 11:29 DC 05/14/21 10:56 Ondansetron HCl (Zofran) 4 mg 1X ONCE IVP 05/14/21 10:30 05/14/21 10:39 DC 05/14/21 11:01 Ketorolac Tromethamine (Toradol 30mg Vial) 30 mg 1X ONCE IVP 05/14/21 10:30 05/14/21 10:39 DC 05/14/21 11:02 Iohexol (Omnipaque 300 Mg/ml) 75 ml 1X ONCE IV 05/14/21 11:15 05/14/21 11:21 DC 05/14/21 11:15 Info (CONTRAST GIVEN -- Rx MONITORING) 1 each PRN DAILY PRN MC SEE COMMENTS 05/14/21 11:30 05/14/21 13:30 DC Laboratory Tests Test 05/14/21 10:40 05/14/21 10:50 05/14/21 12:00 White Blood Count 6.8 x10^3/uL (4.0-11.0) Red Blood Count 4.44 x10^6/uL (3.50-5.40) Hemoglobin 13.7 g/dL (12.0-15.5) Hematocrit 40.8 % (36.0-47.0) Mean Corpuscular Volume 92 fL (79-100) Mean Corpuscular Hemoglobin 31 pg (25-35) Mean Corpuscular Hemoglobin Concent 34 g/dL (31-37) Red Cell Distribution Width 14.3 % (11.5-14.5) Platelet Count 306 x10^3/uL (140-400) Neutrophils (%) (Auto) 75 % (31-73) H Lymphocytes (%) (Auto) 18 % (24-48) L Monocytes (%) (Auto) 5 % (0-9) Eosinophils (%) (Auto) 3 % (0-3) Basophils (%) (Auto) 1 % (0-3) Neutrophils # (Auto) 5.0 x10^3/uL (1.8-7.7) Lymphocytes # (Auto) 1.2 x10^3/uL (1.0-4.8) Monocytes # (Auto) 0.3 x10^3/uL (0.0-1.1) Eosinophils # (Auto) 0.2 x10^3/uL (0.0-0.7) Basophils # (Auto) 0.0 x10^3/uL (0.0-0.2) Sodium Level 143 mmol/L (136-145) Potassium Level 4.8 mmol/L (3.5-5.1) Chloride Level 104 mmol/L (98-107) Carbon Dioxide Level 29 mmol/L (21-32) Anion Gap 10 (6-14) Blood Urea Nitrogen 13 mg/dL (7-20) Creatinine 0.8 mg/dL (0.6-1.0) Estimated GFR (Cockcroft-Gault) 75.3 BUN/Creatinine Ratio 16 (6-20) Glucose Level 121 mg/dL (70-99) H Calcium Level 9.2 mg/dL (8.5-10.1) Total Bilirubin 0.5 mg/dL (0.2-1.0) Aspartate Amino Transferase (AST) 18 U/L (15-37) Alanine Aminotransferase (ALT) 35 U/L (14-59) Alkaline Phosphatase 100 U/L (46-116) Troponin I High Sensitivity 5 ng/L (4-50) BN-Mjc-M-Type Natriuretic Peptide 23 pg/mL (0-124) Total Protein 7.8 g/dL (6.4-8.2) Albumin 3.7 g/dL (3.4-5.0) Albumin/Globulin Ratio 0.9 (1.0-1.7) L Influenza Type A Antigen Negative (NEGATIVE) Influenza Type B Antigen Negative (NEGATIVE) SARS-CoV-2 Antigen (Rapid) Negative (NEGATIVE) Urine Collection Type Void Urine Color Yellow Urine Clarity Clear Urine pH 7.0 (<5.0-8.0) Urine Specific [place] 1.010 (1.000-1.030) Urine Protein Negative mg/dL (NEG-TRACE) Urine Glucose (UA) Negative mg/dL (NEG) Urine Ketones (Stick) Negative mg/dL (NEG) Urine Blood Negative (NEG) Urine Nitrite Negative (NEG) Urine Bilirubin Negative (NEG) Urine Urobilinogen Dipstick 0.2 mg/dL (0.2 mg/dL) Urine Leukocyte Esterase Trace (NEG) Urine RBC 0 /HPF (0-2) Urine WBC Occ /HPF (0-4) Urine Squamous Epithelial Cells Few /LPF Urine Bacteria 0 /HPF (0-FEW) Urine Mucus Slight /LPF Laboratory Tests 05/14/21 10:40 Laboratory Tests 05/14/21 10:40 Vital Signs: Vital Signs Date Time Temp Pulse Resp B/P (MAP) Pulse Ox O2 Delivery O2 Flow Rate FiO2 05/14/21 11:36 82 18 104/52 (69) 99 Room Air 05/14/21 10:20 98.4 98.4 EKG: EKG: EKG performed at 1056 by ED nursing staff shows a sinus bradycardia without other ectopy heart rate 54 bpm, OR interval point 168, QTc interval 0.369, no acute STEMI, no ACS, no acute ischemia appreciated, EKG interpreted by ED attending physician Dr. Bautista. Radiology/Procedures: Radiology/Procedures: REASON: Dizzyness PROCEDURE: CHEST AP ONLY XR CHEST 1V INDICATION: Dizziness . COMPARISON STUDY: None. FINDINGS: Lungs: Normal lung volume. No pulmonary mass or consolidation. The tracheo bronchial tree and hilar structures are normal. Pleura: No pleural effusion or pneumothorax. Heart and Mediastinum: The cardiomediastinal silhouette is normal. The great vessels of the thorax are normal. Bones and Soft Tissues: The bones and soft tissues are within normal limits. IMPRESSION: No acute cardiopulmonary process. Electronically signed by: Dale Case MD (05/14/2021 11:13 AM) [id number] REASON: Dizzyness, light headedness PROCEDURE: CT HEAD WO CONTRAST EXAM: CTA HEAD AND NECK W/WO CONTRAST, CT HEAD/BRAIN WO DATE: 05/14/2021 11:42 AM INDICATION: Dizziness, light headedness TECHNIQUE: 5 mm axial tomographic images were obtained through the head before contrast. CTA angiogram of the head and neck was obtained after IV bolus administration of 75 cc of Omnipaque 300. The images were sent to workstation and multiplanar reconstructions were obtained. Multiplanar reconstruction images to include MIP and 3-D reconstruction images are submitted. One or more of the following dose reduction techniques were utilized: Automated exposure control (AEC), Adjustment of mA and/or kV according to patient size, Use of iterative reconstruction technique such as ASiR, CT scan done according to ALARA and image gently/image wisely COMPARISON: None. FINDINGS: Noncontrast CT: The brain parenchyma is normal in attenuation. No intra- or extra-axial mass or fluid collection. No hyperdense intracranial hemorrhage. The ventricles are normal in size and configuration without midline shift. There is normal govea- white matter differentiation. The subarachnoid cisterns are patent. The visualized paranasal sinuses are well aerated. The mastoid air cells are clear. The visualized portions of the orbits are normal. No aggressive osseous lesion or fracture. CTA Head: The visualized distal internal carotid arteries, anterior and middle cerebral arteries are patent and normal caliber. The distal vertebral arteries, basilar artery, and posterior cerebral arteries are patent and normal caliber. No aneurysm or arteriovenous malformation is seen. CTA Neck: Right carotid: The right common carotid artery is patent and normal caliber. The carotid bifurcation is normal. No stenosis of the right internal carotid artery per NASCET criteria. The right external carotid artery is patent. Left carotid: The left common carotid artery is patent and normal caliber. The carotid bifurcation is normal. No stenosis of the left internal carotid artery per NASCET criteria. The left external carotid artery is patent. Right vertebral: The right vertebral artery is patent and normal caliber. Left vertebral: The left vertebral artery is patent and normal caliber. The visualized portions of the aortic arch are normal. The origins of the brachiocephalic and subclavian arteries are normal. Scattered conspicuous cervical lymph nodes. Enlarged palatine tonsils. The thyr oid gland is normal. The parotid and submandibular glands are normal. The visualized aerodigestive tract is unremarkable. Mild multilevel degenerative disc height loss. Multilevel disc protrusions and marginal osteophytes results in multilevel spinal canal stenosis. Multilevel uncovertebral and facet arthrosis with multilevel neural foraminal narrowing. The visualized portions of the lungs are clear. IMPRESSION: 1. No acute intracranial process by noncontrast head CT. 2. No intracranial large vessel occlusion. 3. No stenosis of the cervical carotid or vertebral arteries. 4. Enlarged palatine tonsils and scattered conspicuous cervical lymph nodes, likely reactive. PQRS Compliance Statement - Stenosis calculations for CT, MR and conventional angiography are based upon measurement of the distal ICA diameter in accordance with the NASCET methodology. Electronically signed by: Dale Case MD (05/14/2021 12:08 PM) [id number] Course & Med Decision Making: Course & Med Decision Making Pertinent Labs and Imaging studies reviewed. (See chart for details) 51-year-old female, vital signs reviewed, presents emergency department concerning dizziness at home. Physical exam consistent with dehydration, patient did have orthostatic complaints during orthostatic vital signs performed at bedside however there were no orthostatic changes in blood pressure or pulse it was difficult to discern central versus peripheral vertigo from examination. Will order CT head CTA head and neck, CBC, CMP, urinalysis assay. 1 L normal saline, Zofran for nausea. CT head/CTA head and neck negative for acute process, 1 L normal saline infusion continues in process, will order IV Toradol. After period of time, upon reexamination of the patient, patient reports all symptoms have resolved, no longer complains of dizziness symptoms, reports all pain has resolved, is no longer nauseated. Patient is asking for work excuse for tomorrow, will provide work excuse. Discussed with patient strict follow-up with primary care this week for ongoing or returning symptoms. Return to ER precautions and concerns were discussed. Patient gave verbal understanding of a nd is amenable to ED discharge planning. Aron Disclaimer: Aron Disclaimer: This electronic medical record was generated, in whole or in part, using a voice recognition dictation system. Departure Departure Impression: Primary Impression: Dizziness Additional Impression: Nausea Disposition: HOME / SELF CARE / HOMELESS Condition: GOOD Referrals: UNKNOWN PCP NAME (PCP) Patient Instructions: Dizziness, Nausea, Adult Additional Instructions: You were seen today in the emergency department for dizziness with nausea. You were treated today with antinausea medication called Zofran, you were also treated with 1 L normal saline given through an IV. A CT scan of your head and neck did not show any concerning findings. You had indicated your symptoms have resolved. As we discussed there is a likelihood that this was either from dehydration or possibly a viral illness. You are not running a fever, your vital signs have been within normal limits during your stay in the emergency department. I am prescribing you Zofran to use in the event your nausea does return. As we discussed, please stay well-hydrated. A rapid flu and rapid COVID test were negative today in the emergency department, however there is a COVID for PCR test pending, your results should be available within the next 24 to 48 hours, you will be contacted at the number you left with the admitting clerks with this result if positive. Please see your doctor this week for any ongoing symptoms, return to the emergency department for worsening symptoms or other concerns. Thank you for visiting our Emergency Department. It was a pleasure taking care of you today in the emergency department and we appreciate you trusting us with your care. If any additional problems come up don't hesitate to return to visit us. Please follow up with your primary care provider so they can plan additional care if needed and know about the problem that you had. If symptoms worsen come back to the Emergency Department. Any concerning symptoms that start such as chest pain, shortness of air, weakness or numbness on one side of the body, running high fevers or any other concerning symptoms return to the ER. EMERGENCY DEPARTMENT GENERAL DISCHARGE INSTRUCTIONS Thank you for coming to [facility] Emergency Department (ED) today and trusting us with you care. We trust that you had a positive experience in our Emergency Department. If you wish to speak to the department management, you may call the Director at [phone]. YOUR FOLLOW UP INSTRUCTIONS ARE FOLLOWS: 1. Do you have a private Doctor? If you do not have a private doctor, please ask for a resource list of physicians or clinics that may be able to assist you with follow up care. 2. The Emergency Physicain has interpreted your x-rays. The X-Ray specialist will also review them. If there is a change in the findings, you will be notified in 48 hours when at all possible. 3. A lab test or culture has been done, your results will be reviewed and you will be notified if you need a change in treatment. ADDITIONAL INSTRUCTIONS AND INFORMATION: 1. Your care today has been supervised by a physician who is specially trained in emergency care. Many problems require more than one evaluation for a complete diagnosis and treatment. We recommend that you schedule your follow up appointment as recommended to ensure complete treatment of you illness or injury. If you are unable to obtain follow up care and continue to have a problem, or if your condition worsens, we recommend that you return to the ED. 2. We are not able to safely determine your condition over the phone nor are we able to give sound medical advice over the phone. For these safety reasons, if you call for medical advice we will ask you to come to the ED for further evaluation. 3. If you have any questions regarding these discharge instructions please call the ED at [phone]. SAFETY INFORMATION: In the interest of safety, wellness, and injury prevention; we encourage you to wear your sealbelt, if you smoke; quite smoking, and we encourage family to use a protective helmet for bicycling and other sporting events that present an increased risk for head injury. IF YOUR SYMPTOMS WORSEN OR NEW SYMPTOMS DEVELOP, OR YOU HAVE CONCERNS ABOUT YOUR CONDITION; OR IF YOUR CONDITION WORSENS WHILE YOU ARE WAITING FOR YOUR FOLLOW UP APPOINTMENT; EITHER CONTACT YOUR PRIMARY CARE DOCTOR, THE PHYSICIAN WHOSE NAME AND NUMBER YOU WERE GIVEN, OR RETURN TO THE ED IMMEDIATELY. Scripts Ondansetron (ONDANSETRON ODT) 4 Mg Tab.rapdis 1 TAB PO PRN Q6-8HRS for nausea, #16 TAB 0 Refills Prov: KIEL GOMEZ APRN 05/14/21 KIEL GOMEZ APRN May 14, 2021 12:51
[2021-05-14 13:00] VITALS: BP 117/65
[2021-05-14] MEDS ORDERED: ONDA4TAB12 PO (13:21)
--- NOTE | 2021-05-14 16:06 | EKG ---
[facility] [address] [place] [address] Test Date: 2021-05-14 Test Time: 10:56:43 Pat Name: DAYANA HALE Department: Room: Gender: F [employer]: : [id number] Requested By: KIEL GOMEZ Order Number: [id number] Reading MD: Anish Best MD Measurements Intervals [place] Rate: 54 P: 41 MI: 168 QRS: -12 QRSD: 78 T: 9 QT: 384 QTc: 369 Interpretive Statements SINUS RHYTHM Electronically Signed On 05-15-2021 9:14:26 [employer]IFT [employer] by Anish Best MD
--- NOTE | 2021-05-15 17:27 | NUR ---
IP: Informed pt of negative covid test. Pt verbalized understanding.
== END 2021-05-14 13:28 | disposition home or self-care (01) ==
LOC: ER 10:11
DX: R42 Dizziness and giddiness (principal); Z20.822 Contact with and (suspected) exposure to COVID-19; R11.0 Nausea; R53.81 Other malaise; R07.89 Other chest pain
CPT/HCPCS: 36415; 70450; 70496; 70498; 71045; 80053; 81001; 83880; 84484; 85025; 87086; 87428; 93005; 96361; 96374; 96375; 99285; J1885; J2405; J7030; Q9967; U0003; U0005